=== PATIENT | male | born 1935 | race Caucasian/White ===

== ENCOUNTER 2016-10-05 10:19 | Emergency (ER) | payer MEDICAID, MEDICARE, OTHER ==
[2016-10-05 10:34] VITALS: RESP 18; TEMP 98.9
[2016-10-05 11:28] LABS: RBC URINE 8 /hpf (0-3); URINE BACTERIA RARE (<OCC); URINE BILIRUBIN NEGATIVE (NEGATIVE); URINE BLOOD 2+ (NEGATIVE); URINE COLOR Yellow (YELLOW); URINE GLUCOSE (UA) NORMAL (Normal); URINE KETONE NEGATIVE (NEGATIVE); URINE LEUKOCYTE ESTERASE NEG Leu/uL (Negative); URINE PROTEIN NEGATIVE (NEGATIVE); URINE UROBILINOGEN NORMAL mg/dL (0.2-1.0); WBC URINE 1 /hpf (0-5)
--- NOTE | 2016-10-05 11:48 | C.PDOC ---
History Of Present Illness 81 year old male presents to the ED with complaints of increased frequency of urination for approximately 2-3 months worse at night. Patient notes a prostate surgery about two years ago but has not followed up with a doctor in a year due to changes in insurance. Patient denies polydipsia, dysuria, hematuria, abdominal pain, or testicular pain. Time Seen by Provider: 10/05/16 11:07 Chief Complaint (Nursing): Male Genitourinary History Per: Patient History/Exam Limitations: no limitations Onset/Duration Of Symptoms: Persistent (2-3 months ) Current Symptoms Are (Timing): Still Present Severity: None Pain Scale Rating Of: 0 Associated Symptoms: Other (increased urinary frequency ). denies: Fever, Chills, Nausea, Vomiting Recent travel outside of the [place]: No Additional History Per: Prior Records Past Medical History Reviewed: Historical Data, Nursing Documentation, Vital Signs Vital Signs: Last Vital Signs Temp 98.9 F 10/05/16 10:33 Pulse 59 L 10/05/16 10:33 Resp 18 10/05/16 10:33 BP 173/90 H 10/05/16 10:33 Pulse Ox 96 10/05/16 11:57 Family History: States: Unknown Family Hx - Social History Hx Alcohol Use: Yes Hx Substance Use: No - Immunization History Hx Tetanus Toxoid Vaccination: No Hx Influenza Vaccination: No Hx Pneumococcal Vaccination: No Review Of Systems Constitutional: Negative for: Fever, Chills Cardiovascular: Negative for: Chest Pain Respiratory: Negative for: Cough, Shortness of Breath Gastrointestinal: Negative for: Nausea, Vomiting, Abdominal Pain, Diarrhea Genitourinary: Positive for: Frequency. Negative for: Dysuria, Incontinence, Hematuria, Penile Discharge, Scrotal Pain Neurological: Negative for: Weakness, Numbness Physical Exam - Physical Exam Appears: Non-toxic, No Acute Distress Skin: Warm, Dry Head: Atraumatic, Normacephalic Eye(s): bilateral: Normal Inspection, EOMI Nose: Normal Oral Mucosa: Moist Neck: Normal ROM, Supple Chest: Symmetrical, No Deformity Cardiovascular: Rhythm Regular Respiratory: Normal Breath Sounds, No Rhonchi, No Wheezing Gastrointestinal/Abdominal: Soft, No Tenderness, No Distention, No Guarding, No Rebound Back: Normal Inspection, No Vertebral Tenderness, No Paraspinal Tenderness Extremity: Normal ROM, No Tenderness Neurological/Psych: Oriented x3, Normal Speech, Normal Cognition ED Course And Treatment O2 Sat by Pulse Oximetry: 96 (room air ) Progress Note: UA was ordered. Discussed with patient the importance of following up with urologist and informed about [facility] care and access to clinic. CAse discussed with Dr Gonzalez, agreed upon plan and discharge. Disposition - Disposition [facility] Lindsey Booker MD [Staff Provider] - Disposition: HOME/ ROUTINE Disposition Time: 11:46 Condition: STABLE Additional Instructions: Vaya a velasco mdico o la clnica en 1-3 katz sin falta, para mas evaluacin. Manor los medicamentos irma indicado. Volver a la rhona de emergencia en cualquier momento si los sntomas persisten o empeoran. Instructions: Benign Prostatic Hypertrophy (ED) Forms: [employer] (Welsh) Print Language: FAROESE - Clinical Impression Clinical Impression: Urinary frequency - Scribe Statement The provider has reviewed the documentation as recorded by the Scribe Helena Tracey All medical record entries made by the Scribe were at my direction and personally dictated by me. I have reviewed the chart and agree that the record accurately reflects my personal performance of the history, physical exam, medical decision making, and the department course for this patient. I have also personally directed, reviewed, and agree with the discharge instructions and disposition.
--- NOTE | 2016-10-05 11:51 | C.PDOC ---
History Of Present Illness 81 year old male presents to the ED with complaints of increased frequency of urination for approximately 2-3 months worse at night. Patient notes a prostate surgery three years ago but has not followed up with a doctor in a year and a half due to changes in insurance. Patient denies polydipsia, ysuria, hematuria, abdominal pain, t Time Seen by Provider: 10/05/16 11:07 Chief Complaint (Nursing): Male Genitourinary Past Medical History Vital Signs: Last Vital Signs Temp 98.9 F 10/05/16 10:33 Pulse 59 L 10/05/16 10:33 Resp 18 10/05/16 10:33 BP 173/90 H 10/05/16 10:33 Pulse Ox 96 10/05/16 10:33 - Social History Hx Alcohol Use: Yes Hx Substance Use: No - Immunization History Hx Tetanus Toxoid Vaccination: No Hx Influenza Vaccination: No Hx Pneumococcal Vaccination: No ED Course And Treatment O2 Sat by Pulse Oximetry: 96 Disposition - Disposition Forms: [employer] (Divehi) - Scribe Statement The provider has reviewed the documentation as recorded by the Scribe Helena Tracey All medical record entries made by the Scribe were at my direction and personally dictated by me. I have reviewed the chart and agree that the record accurately reflects my personal performance of the history, physical exam, medical decision making, and the department course for this patient. I have also personally directed, reviewed, and agree with the discharge instructions and disposition.
[2016-10-05 12:54] VITALS: BP 132/75; PULSE 65; O2SAT 97
== END 2016-10-05 12:55 | disposition home or self-care (01) ==
LOC: C.ER 10:19
DX: R35.0 Frequency of micturition (principal)